=== PATIENT | female | born 1995 | race Caucasian/White ===

== ENCOUNTER 2023-06-01 07:58 | Emergency (ER) | payer BC ==
[2023-06-01 08:33] LABS: Specific Gravity 1.027 (1.005-1.030); Urine Bacteria >50 /HPF (<20); Urine Bilirubin NEGATIVE (Negative); Urine Blood 3+ (OVER) (Negative); Urine Clarity Extremely Turbid (Clear); Urine Color Brown (Yellow); Urine Glucose NEGATIVE (Negative); Urine Mucus Slight /HPF (None Seen); Urine Protein 1+ (Negative); Urine RBC >50 /HPF (None Seen); Urine Urobilinogen Normal (Normal); Urine pH 5.5 (5.0-7.0)
[2023-06-01 08:56] LABS: SARS-CoV-2 Antigen Rapid Res Negative (Negative)
--- NOTE | 2023-06-01 09:25 | ER ---
Nurse's Notes [facility] Name: Candice Alvarado Age: 27 yrs Sex: Female : 1995 Arrival Date: 06/01/2023 Time: 07:58 Bed 7 Private MD: Diagnosis: Acute upper respiratory infection, unspecified Presentation: 06/01 08:14 Chief complaint: Patient states: Congestion, slight cough, fatigue, and low back aches ll1 for a few days. No known fever. Coronavirus screen: Client denies travel out of the [place] in the last 14 days. chills, congestion, cough unrelated to allergies, fatigue, headache, sore throat, Client presents with at least one sign or symptom that may indicate coronavirus-19. Standard/surgical mask placed on the client. Ebola Screen: Patient denies travel to an Ebola-affected area in the 21 days before illness onset. Resp Distress? No respiratory distress is noted at this time. Initial Sepsis Screen: Does the patient meet any 2 criteria? No. Patient's initial sepsis screen is negative. Does the patient have a suspected source of infection? No. Patient's initial sepsis screen is negative. Risk Assessment: Do you want to hurt yourself or someone else? Patient reports no desire to harm self or others. Onset of symptoms was May 29, 2023. 08:14 Method Of Arrival: Ambulatory ll1 08:14 Acuity: LIGIA 4 ll1 Triage Assessment: 08:16 General: Appears uncomfortable, Behavior is calm, cooperative, appropriate for age. ll1 Pain: Complains of pain in back Pain currently is 6 out of 10 on a pain scale. Quality of pain is described as aching. EENT: Reports nasal congestion. Respiratory: Reports cough that is pain with cough. Musculoskeletal: Reports pain in back. Historical: - Allergies: 08:13 No Known Allergies; ll1 - PMHx: 08:13 None; ll1 - PSHx: 08:13 gastric bypass; tummy tuck; back SX; ll1 - Immunization history:: Adult Immunizations up to date. - Social history:: Smoking status: Patient denies any tobacco usage or history of. Screenin:17 [facility] ED Fall Risk Assessment (Adult) History of falling in the last 3 months, db including since admission No falls in past 3 months (0 pts) Confusion or Disorientation No (0 pts) Intoxicated or Sedated No (0 pts) Impaired Gait No (0 pts) Mobility Assist Device Used No (0 pt) Altered Elimination No (0 pt) Score/Fall Risk Level 0 - 2 = Low Risk Oriented to surroundings, Maintained a safe environment. Abuse screen: Denies threats or abuse. Denies injuries from another. Nutritional screening: No deficits noted. Tuberculosis screening: No symptoms or risk factors identified. Assessment: 08:17 Reassessment: Patient appears in no apparent distress at this time. Patient and/or db family updated on plan of care and expected duration. Pain level reassessed. Patient is alert, oriented x 3, equal unlabored respirations, skin warm/dry/pink. PATIENT AMBULATORY TO RESTROOM. General: Appears in no apparent distress. comfortable, Behavior is calm, cooperative. Neuro: Level of Consciousness is awake, alert, obeys commands, Oriented to person, place, time, situation. 08:38 Reassessment: PATIENT COMPLAINS OF LOWER BACK PAIN AND NASAL CONGESTION. db Cardiovascular: No deficits noted. Cardiovascular: Reports None Capillary refill < 3 seconds. Respiratory: No deficits noted. Breath sounds are clear bilaterally. 08:38 Respiratory: Airway is patent Respiratory effort is even, unlabored, Respiratory db pattern is regular, symmetrical. 09:45 Reassessment: Patient appears in no apparent distress at this time. Patient and/or db family updated on plan of care and expected duration. Pain level reassessed. Patient is alert, oriented x 3, equal unlabored respirations, skin warm/dry/pink. Vital Signs: 08:14 BP 123 / 78; Pulse 83; Resp 17; Temp 97.9; Pulse Ox 100% on R/A; Pain 6/10; ll1 08:30 BP 109 / 63; Pulse 89; Resp 16; Pulse Ox 100% on R/A; db 09:30 BP 98 / 70; Pulse 70; Resp 16; Pulse Ox 100% on R/A; db 08:14 Pain Scale: Adult ll1 ED Course: 08:01 Patient arrived in ED. im 08:01 [facility] 7 08:01 Amrik Zepeda MD is Attending Physician. 7 08:07 Arm band placed on Patient placed in an exam room, on a stretcher. ll1 08:15 Eryn Douglas, RN is Primary Nurse. db 08:16 Triage completed. 1 08:39 No provider procedures requiring assistance completed. Patient did not have IV access db during this emergency room visit. 09:45 Patient has correct armband on for positive identification. Bed in low position. Call db light in reach. Side rails up X 1. Provided Education on: DISCHARGE. Pulse ox on. NIBP on. Warm blanket given. Administered Medications: 08:38 Drug: Acetaminophen PO 650 mg PO once Route: PO; db 09:52 Follow up: Response: No adverse reaction db Medication: 09:45 VIS not applicable for this client. db Outcome: 09:24 Discharge ordered by . [facility] 09:45 Discharged to home ambulatory, db 09:45 Condition: stable 09:45 Discharge instructions given to patient, Instructed on discharge instructions, follow up and referral plans. Prescriptions given X 1, 09:54 Patient left the ED. db Signatures: Nicolas Abraham RN RN 1 Karyn Yusuf FNP EVENT PLANNING MANAGER [facility] Eryn Douglas, RN RN db Aliya Kruger Corrections: (The following items were deleted from the chart) 09:51 09:50 Reassessment: Patient appears in no apparent distress at this time. Patient db and/or family updated on plan of care and expected duration. Pain level reassessed. Patient is alert, oriented x 3, equal unlabored respirations, skin warm/dry/pink. db
--- NOTE | 2023-06-01 09:25 | EDPHYS ---
Physician Documentation [facility] Name: Candice Alvarado Age: 27 yrs Sex: Female : 1995 Arrival Date: 06/01/2023 Time: 07:58 Bed 7 Private MD: ED Physician Amrik Zepeda HPI: 06/01 08:25 This 27 yrs old Female presents to ER via Ambulatory with complaints of Low Back Pain, jh7 Congestion. 08:25 27-year-old female presents to the ER complaining of fatigue, cough, congestion, and jh7 lower back ache. She reports that symptoms have gone on for the past 3 days. She denies urinary symptoms or fever. No past medical history.. Historical: - Allergies: 08:13 No Known Allergies; ll1 - PMHx: 08:13 None; ll1 - PSHx: 08:13 gastric bypass; tummy tuck; back SX; ll1 - Immunization history:: Adult Immunizations up to date. - Social history:: Smoking status: Patient denies any tobacco usage or history of. ROS: 08:14 Constitutional: Negative for fever, chills, and weight loss, Eyes: Negative for injury, jh7 pain, redness, and discharge, Neck: Negative for injury, pain, and swelling, Cardiovascular: Negative for chest pain, palpitations, and edema, Abdomen/GI: Negative for abdominal pain, nausea, vomiting, diarrhea, and constipation, MS/Extremity: Negative for injury and deformity, Skin: Negative for injury, rash, and discoloration, Neuro: Negative for headache, weakness, numbness, tingling, and seizure, 08:14 ENT: Positive for nasal discharge, sinus congestion, sinus pain, 08:14 Respiratory: Positive for cough, Negative for shortness of breath, wheezing, 08:14 Back: Positive for pain with coughing, 08:14 All other systems are negative, Exam: 08:14 Constitutional: This is a well developed, well nourished patient who is awake, alert, jh7 and in no acute distress. Head/Face: Normocephalic, atraumatic. Eyes: Pupils equal round and reactive to light, extra-ocular motions intact. Lids and lashes normal. Conjunctiva and sclera are non-icteric and not injected. Cornea within normal limits. Periorbital areas with no swelling, redness, or edema. Neck: Trachea midline, no thyromegaly or masses palpated, and no cervical lymphadenopathy. Supple, full range of motion without nuchal rigidity, or vertebral point tenderness. No Meningismus. Cardiovascular: Regular rate and rhythm with a normal S1 and S2. No gallops, murmurs, or rubs. Normal PMI, no JVD. No pulse deficits. Respiratory: Lungs have equal breath sounds bilaterally, clear to auscultation and percussion. No rales, rhonchi or wheezes noted. No increased work of breathing, no retractions or nasal flaring. Abdomen/GI: Soft, non-tender, with normal bowel sounds. No distension or tympany. No guarding or rebound. No evidence of tenderness throughout. Skin: Warm, dry with normal turgor. Normal color with no rashes, no lesions, and no evidence of cellulitis. MS/ Extremity: Pulses equal, no cyanosis. Neurovascular intact. Full, normal range of motion. Neuro: Awake and alert, GCS 15, oriented to person, place, time, and situation. Motor strength 5/5 in all extremities. Sensory grossly intact. Normal gait. 08:14 ENT: TM's: no acute changes, Nose: nasal drainage, that is minimal, and is seen coming from both nares, Posterior pharynx: pooling of secretions, that are mild, 08:14 Back: pain, that is mild, of the left low back and right low back, Vital Signs: 08:14 BP 123 / 78; Pulse 83; Resp 17; Temp 97.9; Pulse Ox 100% on R/A; Pain 6/10; ll1 08:30 BP 109 / 63; Pulse 89; Resp 16; Pulse Ox 100% on R/A; db 09:30 BP 98 / 70; Pulse 70; Resp 16; Pulse Ox 100% on R/A; db 08:14 Pain Scale: Adult ll1 MDM: 08:01 Patient medically screened. [facility] 09:30 Differential diagnosis: COVID, flu, UTI. Data reviewed: vital signs, nurses notes, lab [facility] test result(s), Flu: negative urinalysis, Elevated squamous cells, likely contamination. Patient confirmed no urinary symptoms and the start of her menstrual cycle yesterday.. I considered the following discharge prescriptions or medication management in the emergency department Medications were administered in the Emergency Department. See MAR. Counseling: I had a detailed discussion with the patient and/or guardian regarding the historical points, exam findings, and any diagnostic results supporting the discharge/admit diagnosis, to return to the emergency department if symptoms worsen or persist or if there are any questions or concerns that arise at home. 06/01 08:14 Order name: Urinalysis w/ reflexes; Complete Time: 08:53 [facility] 06/01 08:14 Order name: SARS RAPID; Complete Time: 09:01 [facility] 06/01 08:14 Order name: Flu; Complete Time: 09:24 [facility] Administered Medications: 08:38 Drug: Acetaminophen PO 650 mg PO once Route: PO; db 09:52 Follow up: Response: No adverse reaction db Disposition: 10:05 Co-signature as Attending Physician, Amrik Zepeda MD I agree with the assessment and kdr plan of care. Disposition Summary: 06/01/23 09:24 Discharge Ordered Notes: Location: Home [facility] Problem: new [facility] Symptoms: are unchanged [facility] Condition: Stable [facility] Diagnosis - Acute upper respiratory infection, unspecified [facility] Followup: [facility] - With: Private Physician - When: 2 - 3 days - Reason: Recheck today's complaints Discharge Instructions: - Discharge Summary Sheet [facility] - Upper Respiratory Infection, Adult [facility] - Viral Respiratory Infection [facility] Forms: - Medication Reconciliation Form [facility] - Thank You Letter [facility] - Patient Portal Instructions [facility] - Leadership Thank You Letter [facility] - Work release form db Prescriptions: - Bromfed DM 2-30-10 mg/5 mL Oral syrup - administer 10 milliliter ORAL route every 4-6 hours As needed as needed for [facility] cold symptoms; 240 milliliter; Refills: 0, Product Selection Permitted Signatures: Dispatcher [employer] EDAmrik Henry MD MD [facility] Nicolas Abraham RN RN 1 Karyn Yusuf FNP SEALING AND CANCELING MACHINE OPERATOR [facility] Eryn Douglas, GABRIELLA RN db Corrections: (The following items were deleted from the chart) 08:25 08:14 This 27 yrs old Female presents to ER via Ambulatory with complaints of Low Back jh7 Pain, Congestion. [facility]
[2023-06-01 09:58] VITALS: TEMP 97.9; O2SAT 100
[2023-06-01 10:01] VITALS: BP 98/70
== END 2023-06-01 09:54 | disposition home or self-care (01) ==
LOC: ER 07:58
DX: J06.9 Acute upper respiratory infection, unspecified (principal); Z11.52 Encounter for screening for COVID-19
CPT/HCPCS: 36415; 81001; 87804; 87811; 99284

== ENCOUNTER 2023-06-03 03:04 | Emergency (ER) | payer BC ==
--- OUTSIDE RECORDS SUMMARY | 2023-06-03 03:07 | XMS REPORT | Continuity of Care Document ---
:1995 Author Organization [facility] t Address [address] [place] [address] [place] [id number] Care Team Providers Name Role Phone PCP, PATIENT DOES NOT HAVE A Primary Care Physician Unavaila Santiago Harman Attending Clinician SANTIAGO GHOTRA Attending Clinician Unavailable SANTIAGO GHOTRA Admitting Clinician Unavailable Payers Payer Name Policy Type Policy Number Effective Date Expiration Date S ource Problems This patient has no known problems. Allergies, Adverse Reactions, Alerts Allergy Allergy Status Severity Reaction(s) Onset Inactive Treating Comm ents Source Name Type Date Date Clinician NO KNOWN Drug Active Univers ALLERGIE Class ity of [facility] Social History Social Habit Start Date Stop Date Quantity Comments Source Sexual orientation General acute hospital Sex Assigned At [birth year] [facility] Smoking Status Start Date Stop Date Source Tobacco smoking consumption [facility] Medications Ordered Filled Start Stop Current Ordering Indication Dosage Frequency Signature Comments Components Source Medication Medication Date Date Medication? Clinician (SIG) Name Name NaCl 0.9% 2022-07- No 500mL at 999 Univ ers (NS) bolus 0-30 10-30 mL/hr, 500 it y of infusion 03:45: 04:11 mL, IV [place] 500 mL 00 :00 Infusion, Medical ONCE, 1 Branch dose, On 05/14/23 at 2245, STAT ketorolac 2022-07- No 30mg 30 mg, Unive rs (TORADOL) 0-30 10-30 Slow IV ity of injection 03:00: 03:00 Push, [place] 30 mg 00 :00 ONCE, 1 Medical dose, On Branch 05/14/23 at 2200, MARIS Vital Signs Vital Name Observation Time Observation Value Comments Source Systolic blood 2023-05-15 07:00:00 105 mm[Hg] Univer sity of pressure [facility] Diastolic blood 2023-05-15 07:00:00 70 [facility]Hg[facility] 2023-05-15 07:00:00 74 /min [facility] Respiratory rate 2023-05-15 07:00:00 16 /min [facility] Oxygen saturation in 2023-05-15 07:00:00 98 /min [facility] Arterial blood by [facility] Pulse oximetry [place] Body temperature 2023-05-15 02:50:00 36.89 Ena [facility] Body height 2023-05-15 02:50:00 170.2 cm [facility] Body weight 2023-05-15 02:50:00 68.04 kg [facility] BMI 2023-05-15 02:50:00 23.49 kg/m2 [facility] Procedures Procedure Date / Time Performing Clinician Source Performed CT ABDOMEN PELVIS WO 2023-05-15 05:05:25 Santiago Ghotra [facility] POCT TEST 2023-05-15 04:19:00 Santiago Ghotra [facility] URINALYSIS 2023-05-15 04:17:00 Santiago Ghotra [facility] URINE DRUG (IMMUNOASSAY) 2023-05-15 04:17:00 Santiago Ghotra [facility] DRUG [facility] SCREEN W/O REFLEX LIPASE 2023-05-15 03:08:00 Santiago Ghotra [facility] COMP. METABOLIC PANEL 2023-05-15 03:08:00 Santiago Ghotra [facility] ([id number]) Medical [place] ETHANOL 2023-05-15 03:08:00 Santiago Ghotra [facility] CBC WITH DIFF 2023-05-15 03:08:00 Santiago Ghotra [facility] NOTICE OF PRIVACY 2023-05-15 02:43:54 Doctor Unassigned, No Univ [facility] PRACTICES Name Medical Branch CONSENT/REFUSAL FOR 2023-05-15 02:43:13 Doctor Unassigned, No [facility] Name Medical [place] Encounters Start End Encounter Admission Attending Care Care Encounter Source Date/Time Date/Time Type Type Clinicians Facility Department ID 2023-05-14 2023-05-15 [id number] Univers 21:53:00 02:24:00 Santiago LEONE [id number] i ty [facility] [id number] [facility] [id number] [facility] 084 Branch 2023-05-14 2023-05-15 Emergency X BRANDIN [facility] ERT [id number] Univers 21:53:00 02:24:00 SANTIAGO thorpe [facility] Results Test Description Test Time Test Comments Results Result Comments Source POCT TEST 2023-05-15 04:19:00 Test Item Value Reference Range Interpretation Comme nts POCT PREG (test code = 1605) Negative On board controls acceptable with C Line (test code = 3574) Yes POCT PREG LOT # (test code = 3575) [id number] POCT PREG TEST DATE (test code = 3576) Lab Interpretation (test code = 54811-6) [facility]13 Test Item Value Reference Range Interpretation Comments ALCOHOL (test code = 242 mg/dL 1574924670) CARLEE (test code = CARLEE) <10 [id number] Toxic>100 Depression of [employer]>400 Fatalities Reported [facility] ([id number])2023-05-15 03:47:33 Test Item Value Reference Range Interpretation Comments NA (test code = 142 mmol/L 135-145 2210438857) K (test code = 3.4 mmol/L 3.5-5.0 L 5595497838) CL (test code = 108 mmol/L 98-108 5864601067) CO2 TOTAL (test code = 20 mmol/L 23-31 L 4204081052) AGAP (test code = 14 2-16 0254127628) BUN (test code = 7 mg/dL 7-23 5672261956) GLUCOSE (test code = 81 mg/dL 70-110 3739576037) CREATININE (test code = 0.65 mg/dL 0.50-1.04 0415469007) TOTAL BILI (test code = 0.3 mg/dL 0.1-1.4 5356670931) CALCIUM (test code = 8.7 mg/dL 8.6-10.6 3052864672) T PROTEIN (test code = 7.4 g/dL 6.3-8.2 1902572311) ALBUMIN (test code = 4.3 g/dL 3.5-5.0 7054508355) ALK PHOS (test code = 87 U/L 34-122 8748529592) ALTv (test code = 16 U/L 5-35 1742-6) AST(SGOT) (test code = 36 U/L 13-40 6425740808) eGFR (test code = 111.1 mL/min/1.73m2 0600263168) CARLEE (test code = CARLEE) Association of Glomerular Filtration Rate (GFR) and Staging of Kidney Disease* + --+ --+ ------+| GFR (mL/min/1.73 m2) ?| With Kidney Damage ?| ?Without Kidney Damage+ --------+ --------+ +| ?>90 ?| ?Stage one ?| ? Normal ?+ ---+ ---+ -------+| ?60-89 ?| ?Stage two ?| ? Decreased GFR ? + --+ --+ ------+| ?30-59 ?| ?Stage three ?| ? Stage three ? + --+ --+ ------+| ?15-29 ?| ?Stage four ? | ? Stage four ?+ ---+ ---+ -------+| ?<15 (or dialysis) ? ?| ?Stage five ? | ? Stage five ?+ ---+ ---+ -------+ *Each stage assumes the associated GFR level has been in effect for at least three months. ?Stages 1 to 5, with or without kidney disease, indicate chronic kidney disease. Notes: Determination of stages one and two (with eGFR >59mL/min/1.73 m2) requires estimation of kidney damage for at least three months as defined by structural or functional abnormalities of the kidney, manifested by either:Pathological abnormalities or Markers of kidney damage (including abnormalities in the composition of the blood or urine or abnormalities in imaging tests). Lab Interpretation Abnormal (test code = 20789-1) [facility]47[facility]33 Test Item Value Reference Range Interpretation Comments LIPASE (test code = 7189972592) 437 U/L 0-220 H Lab Interpretation (test code = Abnormal 87099-1) [facility] [id number] 03:34:31 Test Item Value Reference Range Interpretation Comments WBC (test code = 8.35 See_Comment [Automated 6490-2) message] The sy stem which generated this result transmitted reference range : 4.30 - 11.10 10*3/?L. The reference range was not used to interpret this result as normal/abnormal . RBC (test code = 4.29 See_Comment [Automated 659-8) message] The sy stem which generated this result transmitted reference range : 3.93 - 5.25 10*6/?L. The reference range was not used to interpret this result as normal/abnormal . HGB (test code = 10.9 g/dL 11.6-15.0 L 718-7) HCT (test code = 33.9 % 35.7-45.2 L 4544-3) MCV (test code = 79.0 fL 80.6-95.5 L 787-2) MCH (test code = 25.4 pg 25.9-32.8 L 785-6) MCHC (test code = 32.2 g/dL 31.6-35.1 786-4) RDW-SD (test code = 61.3 fL 39.0-49.9 H 55547-5) RDW-CV (test code = 21.7 % 12.0-15.5 H 788-0) PLT (test code = 269 See_Comment [Automated 567-3) message] The sy stem which generated this result transmitted reference range : 166 - 358 10*3/ ?L. The reference r sita was not used to interpret this result as normal/abnormal . MPV (test code = 9.8 fL 9.5-12.9 41633-6) NRBC/100 WBC (test 0.0 See_Comment [Automat ed code = 1756322104) message] The system which generated this result transmitted reference range : 0.0 - 10.0 /100 WBCs. The refer ence range was not u sed to interpret th is result as normal/abnormal . NRBC x10^3 (test code See_Comment [Auto mated = 1206014393) message] The s ystem which generated this result transmitted reference range : 10*3/?L. The reference range was not used to interpret this result as normal/abnormal . GRAN MAT (NEUT) % 59.8 % (test code = 770-8) IMM GRAN % (test code 0.40 % = 7404506921) LYMPH % (test code = 30.1 % 736-9) MONO % (test code = 7.9 % 5905-5) EOS % (test code = 1.2 % 713-8) BASO % (test code = 0.6 % 706-2) GRAN MAT x10^3(ANC) 5.00 10*3/uL 1.88-7.09 (test code = 5912977631) IMM GRAN x10^3 (test 0.03 10*3/uL 0.00-0.06 code = 7345778461) LYMPH x10^3 (test code 2.51 10*3/uL 1.32-3.29 = 731-0) MONO x10^3 (test code 0.66 10*3/uL 0.33-0.92 = 742-7) EOS x10^3 (test code = 0.10 10*3/uL 0.03-0.39 711-2) BASO x10^3 (test code 0.05 10*3/uL 0.01-0.07 = 704-7) Lab Interpretation Abnormal (test code = 91814-6) [facility]"
[2023-06-03] MEDS ORDERED: KETOROLAC 30 MG/ML INJ ONE (03:41)
--- NOTE | 2023-06-03 04:45 | EDPHYS ---
Physician Documentation [facility] Name: Candice Alvarado Age: 27 yrs Sex: Female : 1995 Arrival Date: 06/03/2023 Time: 03:04 Bed 19 Private MD: ED Physician Nikita Morrow HPI: 06/03 03:23 This 27 yrs old Female presents to ER via Ambulatory with complaints of Foot Pain. ec2 03:23 Patient arrives today for evaluation of right ankle and right knee pain. States that ec2 she twisted her right ankle subsequently fell on the line in her right knee. Patient reports that she is having pain with ambulation and movement. Patient reports no other trauma, no other injury, no prodromal symptoms.. Historical: - Allergies: 03:15 No Known Allergies; rv - PMHx: 03:15 None; rv - PSHx: 03:15 back sx; Gastric Bypass; Tummy tuck; rv - Immunization history:: Adult Immunizations up to date. - Social history:: Smoking status: Patient denies any tobacco usage or history of. ROS: 03:23 Constitutional: as per hpi ec2 Exam: 03:23 Constitutional: GEN: NAD Head: atraumatic Eyes: EOMI Ears: External ears are ec2 normal. CV: regular rate LUNGS: no respiratory distress ABD: non-distended SKIN: no evidence of rashes MSK: Right lateral malleolus with TTP, pain with range of motion, right knee with TTP, good range of motion, intact distal neurovascular status. NEURO: moves all extremities equally Vital Signs: 03:13 BP 128 / 83; Pulse 89; Resp 18; Temp 98; Pulse Ox 100% ; Weight 68.04 kg; Height 5 ft. rv 7 in. ; 03:13 Body Mass Index 23.49 (68.04 kg, 170.18 cm) rv MDM: 03:13 Patient medically screened. ec2 03:23 Data reviewed: vital signs. ED course: Patient arrives today for evaluation of right ec2 knee and ankle pain. Examination remarkable for MSK findings as noted above. Will obtain x-rays of the knee and ankle, currently considering ankle sprain, bony fracture, low suspicion for dislocation. Will give Toradol for pain control.. 04:45 ED course: Knee and tib-fib x-ray independently reviewed and interpreted by me, show no ec2 bony fracture. Suspect ankle sprain causing the patient's pain. Will discharge home with recommendations for [id number]-[id number] medications. Return precautions given.. 06/03 03:21 Order name: Knee Right 3 View XRAY ec2 06/03 03:21 Order name: Tib Fib Right XRAY ec2 06/03 04:45 Order name: Ernesto Wrap; Complete Time: 05:02 ec2 Administered Medications: 03:39 Drug: Ketorolac IM 30 mg IM once Route: IM; Site: right gluteus; jb4 Disposition Summary: 06/03/23 04:45 Discharge Ordered Notes: Location: Home ec2 Condition: Stable ec2 Diagnosis - Sprain of ankle ec2 Followup: ec2 - With: Private Physician - When: - Reason: Re-evaluation by your physician Discharge Instructions: - Discharge Summary Sheet ec2 - Ankle Sprain, Kqdh-[id number] ec2 Forms: - Medication Reconciliation Form ec2 - Thank You Letter ec2 - Antibiotic Education ec2 - Prescription Opioid Use ec2 - Patient Portal Instructions ec2 - Leadership Thank You Letter ec2 Signatures: Dispatcher [employer] Malcolm Hitchcock RN RN jb4 William Mccray RN RN rv Nikita Morrow MD MD ec2
--- NOTE | 2023-06-03 04:45 | ER ---
Nurse's Notes [facility] Name: Candice Alvarado Age: 27 yrs Sex: Female : 1995 Arrival Date: 06/03/2023 Time: 03:04 Bed 19 Private MD: Diagnosis: Sprain of ankle Presentation: 06/03 03:13 Chief complaint: Patient states: right knee gave and fell, twisting the right ankle. rv complaining of pain on the right ankle and right knee. denies head injury, +ETOH. Coronavirus screen: At this time, the client does not indicate any symptoms associated with coronavirus-19. Ebola Screen: No symptoms or risks identified at this time. Initial Sepsis Screen: Does the patient meet any 2 criteria? No. Patient's initial sepsis screen is negative. Does the patient have a suspected source of infection? No. Patient's initial sepsis screen is negative. Risk Assessment: Do you want to hurt yourself or someone else? Patient reports no desire to harm self or others. Onset of symptoms was June 03, 2023. 03:13 Method Of Arrival: Ambulatory rv 03:13 Acuity: LIGIA 4 rv Triage Assessment: 03:15 Pain: Complains of pain in right knee and anterior aspect of right ankle. Neuro: Level rv of Consciousness is awake, alert, obeys commands, Oriented to person, place, time, situation. Cardiovascular: Capillary refill < 3 seconds Patient's skin is warm and dry. Respiratory: Airway is patent Respiratory effort is even, unlabored. Derm: Skin is intact. Historical: - Allergies: 03:15 No Known Allergies; rv - PMHx: 03:15 None; rv - PSHx: 03:15 back sx; Gastric Bypass; Tummy tuck; rv - Immunization history:: Adult Immunizations up to date. - Social history:: Smoking status: Patient denies any tobacco usage or history of. Screenin:14 [facility] ED Fall Risk Assessment (Adult) History of falling in the last 3 months, jb4 including since admission. Abuse screen: Denies threats or abuse. Nutritional screening: No deficits noted. Tuberculosis screening: No symptoms or risk factors identified. Assessment: 04:13 Reassessment: Patient appears in no apparent distress at this time. Patient and/or jb4 family updated on plan of care and expected duration. Pain level reassessed. Patient is alert, oriented x 3, equal unlabored respirations, skin warm/dry/pink. Patient states feeling better. 05:14 Reassessment: Patient appears in no apparent distress at this time. Patient and/or jb4 family updated on plan of care and expected duration. Pain level reassessed. Patient is alert, oriented x 3, equal unlabored respirations, skin warm/dry/pink. Vital Signs: 03:13 BP 128 / 83; Pulse 89; Resp 18; Temp 98; Pulse Ox 100% ; Weight 68.04 kg; Height 5 ft. rv 7 in. ; 03:13 Body Mass Index 23.49 (68.04 kg, 170.18 cm) rv ED Course: 03:08 Patient arrived in ED. ag3 03:09 Nikita Morrow MD is Attending Physician. ec2 03:15 Triage completed. rv 03:15 Arm band placed on right wrist. rv 04:06 Knee Right 3 View XRAY In Process Unspecified. EDMS 04:06 Tib Fib Right XRAY In Process Unspecified. EDMS 05:14 Malcolm Smith, RN is Primary Nurse. jb4 05:14 Patient has correct armband on for positive identification. Bed in low position. Call jb4 light in reach. Side rails up X 1. 05:14 No provider procedures requiring assistance completed. Patient did not have IV access jb4 during this emergency room visit. Administered Medications: 03:39 Drug: Ketorolac IM 30 mg IM once Route: IM; Site: right gluteus; jb4 Outcome: 04:45 Discharge ordered by . ec2 05:14 Discharged to home via wheelchair, with friend, jb4 05:14 Condition: stable 05:14 Discharge instructions given to patient, Instructed on discharge instructions, follow up and referral plans. Demonstrated understanding of instructions, follow-up care, 05:15 Patient left the ED. jb4 Signatures: Dispatcher [employer] Malcolm Hitchcock RN RN jb4 William Mccray RN RN rv Gomez, Alice 3 Nikita Morrow MD MD ec2
[2023-06-03 05:19] VITALS: BP 128/83; TEMP 98; O2SAT 100
--- NOTE | 2023-06-03 20:04 | RAD REPORT ---
EXAM DESCRIPTION: RAD - Knee Right 3 View - 06/03/2023 4:04 am CLINICAL HISTORY: The patient is 27 years old and is Female; PAIN Bed Name: 19 TECHNIQUE: Three views of the right knee. COMPARISON: No relevant prior studies available. FINDINGS: BONES/JOINTS: No acute fracture. No dislocation. No suspicious lytic or blastic bone lesions or periosteal reaction. No joint effusion. SOFT TISSUES: Unremarkable. IMPRESSION: Unremarkable right knee radiographs. Electronically signed by: Keith Campos MD 06/03/2023 04:34 AM DRILLER AND BROACHER Due to temporary technical issues with the PACS/Fluency reporting system, reports are being signed by the in house radiologists without review as a courtesy to insure prompt reporting. The interpreting radiologist is fully responsible for the content of the report.
--- NOTE | 2023-06-03 20:05 | RAD REPORT ---
EXAM DESCRIPTION: RAD - Tib Fib Right - 06/03/2023 4:04 am CLINICAL HISTORY: The patient is 27 years old and is Female; PAIN Bed Name: 19 TECHNIQUE: Frontal and lateral views of the right tibia and fibula. COMPARISON: No relevant prior studies available. FINDINGS: BONES/JOINTS: Unremarkable. No acute fracture. No dislocation. No periosteal reactio n. No suspicious lytic or blastic bone lesions. SOFT TISSUES: Unremarkable. No radiopaque foreign body. IMPRESSION: Unremarkable right tibia and fibula radiographs. Electronically signed by: Keith Campos MD 06/03/2023 04:35 AM CORPORATE LEGAL MANAGER Due to temporary technical issues with the PACS/Fluency reporting system, reports are being signed by the in house radiologists without review as a courtesy to insure prompt reporting. The interpreting radiologist is fully responsible for the content of the report.
== END 2023-06-03 05:15 | disposition home or self-care (01) ==
LOC: ER 03:04
DX: S93.401A Sprain of unspecified ligament of right ankle, initial encounter (principal); M25.561 Pain in right knee
CPT/HCPCS: 96372; 99284

== ENCOUNTER 2023-06-07 03:17 | Emergency (ER) | payer BC ==
--- OUTSIDE RECORDS SUMMARY | 2023-06-07 03:19 | XMS REPORT | Continuity of Care Document ---
:1995 Author Organization [facility] t Address [address] [place] [address] [place] [id number] Care Team Providers Name Role Phone PCP, [...] Drug Active [facility] Social History Social Habit Start Date Stop Date Quantity Comments Source Sexual orientation [facility] Sex Assigned At [birth year] [facility] Smoking Status Start Date Stop Date Source Tobacco smoking consumption [facility] Medications Ordered Filled Start Stop [...] 07:00:00 105 mm[Hg] Univer sity of pressure [facility] Diastolic blood 2023-05-15 07:00:00 70 mm[Hg] [facility] 2023-05-15 07:00:00 74 /min [facility] Respiratory rate 2023-05-15 07:00:00 16 /min [facility] Oxygen saturation in 2023-05-15 07:00:00 98 /min [facility] Arterial blood by [facility] Pulse oximetry [place] Body temperature 2023-05-15 02:50:00 36.89 Ena [facility] Body height 2023-05-15 02:50:00 170.2 cm [facility] Body weight 2023-05-15 02:50:00 68.04 kg [facility] BMI 2023-05-15 02:50:00 23.49 kg/m2 [facility] Procedures Procedure Date / Time Performing Clinician Source Performed CT ABDOMEN PELVIS WO 2023-05-15 05:05:25 Santiago Ghotra [facility] POCT TEST 2023-05-15 04:19:00 Santiago Ghotra [facility] URINALYSIS 2023-05-15 04:17:00 Santiago Ghotra [facility] URINE DRUG (IMMUNOASSAY) 2023-05-15 04:17:00 Santiago Ghotra [facility] DRUG [facility] SCREEN W/O REFLEX LIPASE 2023-05-15 03:08:00 Santiago Ghotra [facility] COMP. METABOLIC PANEL 2023-05-15 03:08:00 Santiago Ghotra [facility] ([id number]) [facility] [place] ETHANOL 2023-05-15 03:08:00 Santiago Ghotra [facility] CBC WITH DIFF 2023-05-15 03:08:00 Santiago Ghotra [facility] NOTICE OF PRIVACY 2023-05-15 02:43:54 Doctor Unassigned, No [facility] PRACTICES Name Medical Branch CONSENT/REFUSAL FOR 2023-05-15 02:43:13 Doctor Unassigned, No [facility]AT[facility] Name [facility] [place] Encounters Start End Encounter Admission Attending Care Care Encounter Source Date/Time Date/Time Type Type Clinicians Facility Department ID 2023-05-14 2023-05-15 [id number] Univers 21:53:00 02:24:00 Santiago LEONE [id number] i ty [facility] [id number] [facility] [id number] [facility] 084 Branch 2023-05-14 2023-05-15 Emergency X BRANDIN [facility] ERT [id number] Univers 21:53:00 02:24:[address] [facility] Results Test Description Test Time Test Comments Results Result Comments Source POCT TEST 2023-05-15 04:19:00 Test Item Value Reference Range Interpretation Comme nts POCT PREG (test code = 1605) Negative On board controls acceptable with C Line (test code = 3574) Yes POCT PREG LOT # (test code = 3575) [id number] POCT PREG TEST DATE (test code = 3576) Lab Interpretation (test code = 99283-6) Normal [place] [facility] 03:48:13 Test Item Value Reference Range Interpretation Comments ALCOHOL (test code = 242 mg/dL 2977749481) CARLEE (test code = CARLEE) <10 Gcusraod57-583 Toxic>100 Depression of ENGINEERED WOOD DESIGNER>400 Fatalities Reported [facility] ([id number])2023-05-15 03:47:33 Test Item Value Reference Range Interpretation Comments NA (test code = 142 mmol/L 135-145 9749239597) K (test code = 3.4 mmol/L 3.5-5.0 L 4916038720) CL (test code = 108 mmol/L 98-108 7563602418) CO2 TOTAL (test code = 20 mmol/L 23-31 L 7351111391) AGAP (test code = 14 2-16 8672837030) BUN (test code = 7 mg/dL 7-23 1033533730) GLUCOSE (test code = 81 mg/dL 70-110 9983704259) CREATININE (test code = 0.65 mg/dL 0.50-1.04 2028500742) TOTAL BILI (test code = 0.3 mg/dL 0.1-1.7 0129007614) CALCIUM (test code = 8.7 mg/dL 8.6-10.6 1490696866) T PROTEIN (test code = 7.4 g/dL 6.3-8.2 9123676203) ALBUMIN (test code = 4.3 g/dL 3.5-5.0 4968267773) ALK PHOS (test code = 87 U/L 34-122 6154844281) ALTv (test code = 16 U/L 5-35 1742-6) AST(SGOT) (test code = 36 U/L 13-40 5571663439) eGFR (test code = 111.1 mL/min/1.73m2 7466747580) CARLEE (test code = CARLEE) Association of [...] tests). Lab Interpretation Abnormal (test code = 12391-8) [facility] 03:47:33 Test Item Value Reference Range Interpretation Comments LIPASE (test code = 7765819048) 437 U/L 0-220 H Lab Interpretation (test code = Abnormal 47875-4) [facility] [id number] 03:34:31 Test Item Value Reference Range Interpretation Comments WBC (test code = 8.35 See_Comment [Automated 6190-2) message] The sy stem which generated this result transmitted reference range : 4.30 - 11.10 10*3/?L. The reference range was not used to interpret this result as normal/abnormal . RBC (test code = 4.29 See_Comment [Automated 849-8) message] The sy stem which generated this [...] (test code = 61.3 fL 39.0-49.9 H 45968-5) RDW-CV (test code = 21.7 % 12.0-15.5 H 788-0) PLT (test code = 269 See_Comment [Automated 177-3) message] The sy stem which generated this result transmitted reference range : 166 - 358 10*3/ ?L. The reference r sita was not used to interpret this result as normal/abnormal . MPV (test code = 9.8 fL 9.5-12.9 35686-7) NRBC/100 WBC (test 0.0 See_Comment [Automat ed code = 1865936656) message] The system which generated this result transmitted reference range : 0.0 - 10.0 /100 WBCs. The refer ence range was not u sed to interpret th is result as normal/abnormal . NRBC x10^3 (test code See_Comment [Auto mated = 0914633403) message] The s ystem which generated this result transmitted reference range : 10*3/?L. The reference range was not used to interpret this result as normal/abnormal . GRAN MAT (NEUT) % 59.8 % (test code = 770-8) IMM GRAN % (test code 0.40 % = 5617476978) LYMPH % (test code = 30.1 % 736-9) MONO % (test code = 7.9 % 5905-5) EOS % (test code = 1.2 % 713-8) BASO % (test code = 0.6 % 706-2) GRAN MAT x10^3(ANC) 5.00 10*3/uL 1.88-7.09 (test code = 4140593986) IMM GRAN x10^3 (test 0.03 10*3/uL 0.00-0.06 code = 6089981232) LYMPH x10^3 (test code 2.51 10*3/uL 1.32-3.29 = 731-0) MONO x10^3 (test code 0.66 10*3/uL 0.33-0.92 = 742-7) EOS x10^3 (test code = 0.10 10*3/uL 0.03-0.39 711-2) BASO x10^3 (test code 0.05 10*3/uL 0.01-0.07 = 704-7) Lab Interpretation Abnormal (test code = 98855-1) [facility]"
--- NOTE | 2023-06-07 03:47 | EDPHYS ---
Physician Documentation [facility] Name: Candice Alvarado Age: 27 yrs Sex: Female : 1995 Arrival Date: 06/07/2023 Time: 03:17 Bed 20 Private MD: ED Physician Adolph Jorgensen HPI: 06/07 03:27 This 27 yrs old Female presents to ER via Unassigned with complaints of STD sp4 Exposure, Fever, Head Injury-Adult, Low Back Pain. 03:38 Patient states that she is here in the emergency room for acute head injury where she sp4 bumped her head on a bed frame. Patient left parietal side of the head was the site of injury. Patient denied LOC denied vomiting denied hematoma. Patient states removed from [facility] in April 2023. Receded patient has visited emergency room 06/01/2023. . 03:40 On 06/01/2023 patient was diagnosed with Acute upper respiratory infection, unspecified sp4 . . 03:41 Patient made another visit here on 06/03/2023 and was diagnosed with a right ankle sp4 sprain and a right knee injury. . 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 - Social history:: Smoking status: Patient denies any tobacco usage or history of. - Family history:: not pertinent. ROS: 03:41 Constitutional: Negative for fever, chills, and weight loss, sp4 03:43 Constitutional: Negative for fever, chills, and weight loss, positive for headache sp4 and reported head injury 03:43 All other systems are negative, Exam: 03:43 Constitutional: This is a well developed, well nourished patient who is awake, alert, sp4 and in no acute distress. Head/Face: Normocephalic, atraumatic. Eyes: Pupils equal round and reactive to light, extra-ocular motions intact. Lids and lashes normal. Conjunctiva and sclera are not injected. Cornea within normal limits. Periorbital areas with no swelling, redness, or edema. ENT: Nares patent. No nasal discharge, no septal abnormalities noted. Tympanic membranes are normal and external auditory canals are clear. Oropharynx with no redness, swelling, or masses, exudates, or evidence of obstruction, uvula midline. Mucous membranes moist. Neck: Trachea midline, no thyromegaly or masses palpated, and no cervical lymphadenopathy. Supple, full range of motion without nuchal rigidity, or vertebral point tenderness. Chest/axilla: Normal chest wall appearance and motion. Nontender with no deformity. No lesions are appreciated. Cardiovascular: Regular rate and rhythm with a normal S1 and S2. No gallops, murmurs, or rubs. Normal PMI, no JVD. No pulse deficits. Respiratory: Lungs have equal breath sounds bilaterally, clear to auscultation and percussion. No rales, rhonchi or wheezes noted. No increased work of breathing, no retractions or nasal flaring. Abdomen/GI: Soft, non-tender, with normal bowel sounds. No distension or tympany. No guarding or rebound. No evidence of tenderness throughout. Back: No spinal tenderness. No costovertebral tenderness. Skin: Warm, dry with normal turgor. Normal color with no rashes, no lesions, and no evidence of cellulitis. MS/ Extremity: Pulses equal, no cyanosis. Neurovascular intact. Full, normal range of motion. Neuro: Awake and alert, GCS 15, oriented to person, place, time, and situation. Cranial nerves II-XII grossly intact. Motor strength 5/5 in all extremities. Sensory grossly intact. Psych: Awake, alert, with orientation to person, place and time. Behavior, mood, and affect are within normal limits Vital Signs: 03:23 Weight 63.5 kg; Height 5 ft. 7 in. ; Pain 7/10; vc1 03:37 Pulse 96; Resp 17; Temp 98; Pulse Ox 99% ; vc1 03:39 BP 112 / 78; vc1 03:23 Body Mass Index 21.93 (63.50 kg, 170.18 cm) vc1 03:23 Pain Scale: Adult vc1 [place] Coma Score: 03:23 Eye Response: spontaneous(4). Motor Response: obeys commands(6). Verbal Response: vc1 confused(4). Total: 14. MDM: 03:43 Differential diagnosis: viral Infection, Head injury , contusion, concussion. Data sp4 reviewed: vital signs, nurses notes. ED course: On exam we see no evidence of emergent injury or other emergent medical condition. Patient does not require any imaging. No labs initiated. Patient stable for discharge home. The only complaint patient brought up to me was acute head injury and headache. Patient did not communicate to me any other complaints. . 03:47 Patient medically screened. sp4 Administered Medications: 03:47 Drug: Acetaminophen PO 1000 mg PO once Route: PO; nw1 03:47 Drug: MetoCLOPramide PO 10 mg PO once Route: PO; nw1 Disposition Summary: 06/07/23 03:47 Discharge Ordered Notes: Location: Home sp4 Problem: new sp4 Symptoms: have improved sp4 Condition: Stable sp4 Diagnosis - Unspecified injury of head, initial encounter sp4 - Acute head injury, acute headache sp4 Followup: sp4 - With: Abigail Turner MD - When: 7 - 10 days - Reason: Recheck today's complaints Followup: sp4 - With: Mehdi Rubin MD - When: 7 - 10 days - Reason: Recheck today's complaints Discharge Instructions: - Discharge Summary Sheet sp4 - Head Injury, Adult sp4 Forms: - Patient Portal Instructions sp4 Signatures: Elisa Strange RN RN vc1 Adolph Jorgensen MD MD sp4 Kayla Freire RN RN nw1
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
[2023-06-07] MEDS ORDERED: ACETAMINOPHEN 500 MG TAB ONE (03:56)
[2023-06-07] MEDS ORDERED: METOCLOPRAMIDE 5 MG TAB ONE (03:57)
[2023-06-07 04:06] VITALS: TEMP 98; O2SAT 99
[2023-06-07 04:07] VITALS: BP 112/78
== END 2023-06-07 04:01 | disposition home or self-care (01) ==
LOC: ER 03:17
DX: S09.90XA Unspecified injury of head, initial encounter (principal); R51.9 Headache, unspecified
CPT/HCPCS: 99283